=== PATIENT | female | born 1945 | race African-American/Black ===

== ENCOUNTER 2020-10-31 19:00 | Emergency (ER) | payer MEDICARE, MEDICAID ==
[~2020-10-31] VITALS: Ht 157.5 cm; Wt 82.0 kg
[~2020-10-31 19:00] MED LIST: AMLO1CAP5 PO; ASPI-1497 PO; BUDE6HFA INH; CALC-1017 PO; CHOL20004 PO; DOCU-150 PO; ESOM40CA PO; FURO20TA4 PO; HYDR-4135 PO; HYDR-519 PO; ICOS1CAP PO; LEVA0.6320; LEVO75TA7 PO; MULT-1116 PO; POTA20TA82 PO
[2020-10-31 19:28] VITALS: BP 130/90
== END 2020-10-31 20:26 | disposition left against medical advice (07) ==
LOC: ER 19:00
DX: R53.1 Weakness (principal); Z53.21 Procedure and treatment not carried out due to patient leaving prior to being seen by health care provider
CPT/HCPCS: 93005; 99283